=== PATIENT | male | born 1960 | race Caucasian/White ===

== ENCOUNTER 2020-12-27 20:25 | Emergency (ER) | payer BC ==
[2020-12-27] MEDS ORDERED: Ketorolac Tromethamine 30 MG/ML VIAL ONE (20:37)
[2020-12-27] MEDS ORDERED: Diazepam 10 MG/2 ML SYRINGE ONE (20:42)
== END 2020-12-27 23:05 | disposition home or self-care (01) ==
LOC: ERS 20:25
DX: S32.019A Unspecified fracture of first lumbar vertebra, initial encounter for closed fracture (principal); S32.029A Unspecified fracture of second lumbar vertebra, initial encounter for closed fracture; W17.81XA Fall down embankment (hill), initial encounter
CPT/HCPCS: 72131; 96374; 96375; J1885; J3360